=== PATIENT | female | born 1985 | race Two or more races ===

== ENCOUNTER 2019-09-27 13:29 | Emergency (ER) | payer SELFPAY ==
[2019-09-27 13:37] VITALS: BMI 25.4
--- NOTE | 2019-09-27 14:52 | PDOC ---
History of Present Illness - General Chief Complaint: Pain Stated Complaint: LOWER ABD PAIN Time Seen by Provider: 09/27/19 14:11 History Source: Patient Exam Limitations: No Limitations - History of Present Illness Initial Comments: 09/27/19 16:15 34 yo F w/ no known PMHx comes in c/o sudden onset of pelvic/perineal pain since yesterday which radiates to the rectum. Last BM today, no h/o constipation. (+)lower suprapubic/pelvic pain, no other complaints today, no fever/chills, no NVD, no vaginal discharge, no urinary symptoms (+)sexually active, does not use protection at all times, no h/o STDs. LMP September 04. Pt says that she gets similar pain when she is ovulating but it has never been this bad. She cannot even sit because of the pain Past History - Past Medical History Allergies/Adverse Reactions: Allergies Allergy/AdvReac Type Severity Reaction Status Date / Time No Known Allergies Allergy Verified 09/27/19 13:37 Home Medications: Ambulatory Orders NK [No Known Home Medication] 09/27/19 COPD: No - Psycho Social/Smoking Cessation Hx Smoking Status: Yes Smoking History: Current every day smoker Have you smoked in the past 12 months: Yes Number of Cigarettes Smoked Daily: 1 Information on smoking cessation initiated: No Hx Alcohol Use: No Drug/Substance Use Hx: No Review of Systems - Review of Systems Able to Perform ROS?: Yes Constitutional: No: Chills, Fever, Malaise, Night Sweats HEENTM: No: Eye Pain, Recent change in vision, Throat Pain Respiratory: No: Cough, Shortness of Breath Cardiac (ROS): No: Chest Pain, Palpitations, Chest Tightness ABD/GI: Yes: Abdominal cramping. No: Diarrhea, Nausea, Vomiting : No: Dysuria, Hematuria Musculoskeletal: No: Back Pain Integumentary: No: Rash Neurological: No: Headache, Numbness, Dizziness Psychiatric: No: Change in Appetite Endocrine: No: Unexplained Weight Loss *Physical Exam - Vital Signs Last Vital Signs Temp Pulse Resp BP Pulse Ox 98.0 F 60 18 111/70 100 09/27/19 13:35 09/27/19 13:35 09/27/19 13:35 09/27/19 13:35 09/27/19 13:35 - Physical Exam General Appearance: Yes: Nourished. No: Apparent Distress HEENT: positive: ALVIN, Normal ENT Inspection, Normal Voice. negative: Pale Conjunctivae, Scleral Icterus (R), Scleral Icterus (L) Neck: positive: Supple. negative: Decreased range of motion, Tender midline Respiratory/Chest: positive: Lungs Clear, Normal Breath Sounds. negative: Respiratory Distress, Accessory Muscle Use Cardiovascular: positive: Regular Rhythm, Regular Rate Female Pelvic Exam: positive: cervical os closed, CMT, discharge (scant whitish- grayish vaginal discharge), uterus ((+)uterine tenderness). negative: adnexal tenderness Gastrointestinal/Abdominal: positive: Normal Bowel Sounds, Tender (suprapubic tenderness, no RLQ/RUQ tenderness, (-)cardozo's sign, no tenderness at McBurney' s point.), Soft Rectal Exam: positive: other ((+)tenderness to fingertip exam on digital rectal exam). negative: hemorrhoids Musculoskeletal: positive: Normal Inspection. negative: CVA Tenderness, Decreased Range of Motion Extremity: positive: Normal Capillary Refill, Normal Inspection, Normal Range of Motion. negative: Tender, Pedal Edema Integumentary: positive: Normal Color, Dry. negative: Jaundice, Rash Neurologic: positive: Fully Oriented, Alert, Normal Mood/Affect ED Treatment Course - LABORATORY CBC & Chemistry Diagram: 09/27/19 15:00 09/27/19 15:00 Medical Decision Making - Medical Decision Making 09/27/19 16:39 34 yo F w/ perineal/pelvic/rectal pain, no vaginal discharge. WIll do a TVS R/O ruptured cyst. If sono negative, will do a CT R/O abscess and if all negative, will treat empiricaly for STDs. Change of shift, care of patient signed over to CHA García who will continue care and decide on dispo plan. Discharge - Discharge Information Problems reviewed: Yes Clinical Impression/Diagnosis: Pelvic pain Condition: Stable - Follow up/Referral Referrals: Chio Moreno DO [Primary Care Provider] - - Patient Discharge Instructions - Post Discharge Activity
[2019-09-27 15:33] LABS: BASO % 0.2 % (0-2.0); EOS % 3.6 % (0-4.5); HEMATOCRIT 43.1 % (32.4-45.2); HEMOGLOBIN 14.3 GM/dL (10.7-15.3); LYMPH % 34.6 % (8-40); MCH 30.8 pg (25.7-33.7); MCHC 33.1 g/dl (32.0-36.0); MEAN CELL VOLUME 93.1 fl (80-96); MEAN PLT VOLUME 8.8 fl (7.5-11.1); MONO % 8.1 % (3.8-10.2); NEUT % 53.5 % (42.8-82.8); PLATELET COUNT 250 K/MM3 (134-434); RBC 4.63 M/mm3 (3.60-5.2); RDW 12.5 % (11.6-15.6); WHITE BLOOD COUNT 6.9 K/mm3 (4.0-10.0)
[2019-09-27 15:47] LABS: URINE APPEARANCE CLEAR; URINE BILIRUBIN NEGATIVE (NEGATIVE); URINE COLOR YELLOW; URINE GLUCOSE (UA) NEGATIVE (NEGATIVE); URINE KETONE NEGATIVE (NEGATIVE); URINE LEUK ESTERASE NEGATIVE (NEGATIVE); URINE NITRITE NEGATIVE (NEGATIVE); URINE PROTEIN NEGATIVE (NEGATIVE); URINE UROBILINOGEN 0.2 mg/dL (0.2-1.0)
[2019-09-27 16:00] LABS: ALBUMIN 4.1 g/dl (3.4-5.0); BILIRUBIN,TOTAL 0.2 mg/dL (0.2-1); BLOOD UREA NITROGEN 12.6 mg/dL (7-18); CALCIUM 8.7 mg/dL (8.5-10.1); CREATININE 0.7 mg/dL (0.55-1.3); POTASSIUM 3.6 mmol/L (3.5-5.1); TOT PROT 7.4 g/dl (6.4-8.2)
--- NOTE | 2019-09-27 17:24 | PDOC ---
*Physical Exam - Vital Signs Last Vital Signs Temp Pulse Resp BP Pulse Ox 98.0 F 60 18 111/70 100 09/27/19 13:35 09/27/19 13:35 09/27/19 13:35 09/27/19 13:35 09/27/19 13:35 - Physical Exam General Appearance: Yes: Appropriately Dressed. No: Apparent Distress HEENT: positive: Normal ENT Inspection Respiratory/Chest: positive: Lungs Clear, Normal Breath Sounds. negative: Respiratory Distress, Accessory Muscle Use Cardiovascular: positive: Regular Rhythm, Regular Rate, S1, S2. negative: Edema , Murmur Gastrointestinal/Abdominal: positive: Normal Bowel Sounds, Soft. negative: Tender ED Treatment Course - LABORATORY CBC & Chemistry Diagram: 09/27/19 15:00 09/27/19 15:00 - ADDITIONAL ORDERS Additional order review: Laboratory Results 09/27/19 09/27/19 09/27/19 15:16 15:16 15:00 Sodium 139 Potassium 3.6 Chloride 104 Carbon Dioxide 27 Anion Gap 8 BUN 12.6 Creatinine 0.7 Est GFR (CKD-EPI)AfAm 132.87 Est GFR (CKD-EPI)NonAf 114.64 Random Glucose 88 Calcium 8.7 Total Bilirubin 0.2 AST 18 ALT 28 Alkaline Phosphatase 73 Total Protein 7.4 Albumin 4.1 Beta HCG, Quant Urine Color Yellow Urine Appearance Clear Urine pH 5.0 Ur Specific Bledsoe 1.011 Urine Protein Negative Urine Glucose (UA) Negative Urine Ketones Negative Urine Blood Negative Urine Nitrite Negative Urine Bilirubin Negative Urine Urobilinogen 0.2 Ur Leukocyte Esterase Negative Urine HCG, Qual Negative 09/27/19 15:00 Sodium Potassium Chloride Carbon Dioxide Anion Gap BUN Creatinine Est GFR (CKD-EPI)AfAm Est GFR (CKD-EPI)NonAf Random Glucose Calcium Total Bilirubin AST ALT Alkaline Phosphatase Total Protein Albumin Beta HCG, Quant < 1.0 Urine Color Urine Appearance Urine pH Ur Specific Bledsoe Urine Protein Urine Glucose (UA) Urine Ketones Urine Blood Urine Nitrite Urine Bilirubin Urine Urobilinogen Ur Leukocyte Esterase Urine HCG, Qual 09/27/19 15:00 RBC 4.63 MCV 93.1 MCHC 33.1 RDW 12.5 MPV 8.8 Neutrophils % 53.5 D Lymphocytes % 34.6 D Monocytes % 8.1 Eosinophils % 3.6 Basophils % 0.2 ED Progress Note - Progress Note Progress Note: 09/27/19 17:21 Received signout from CHAVA Garcia. Briefly this a 34-year-old woman Without significant history was presenting to the emergency department with perineal pain. Patient denies any urinary, vaginal or GI symptoms other than pain. Laboratory testing is unremarkable GC and Trichomonas testing is pending Ultrasound read pending. Plan is to CAT scan if ultrasound is negative. If there are findings on ultrasound treat those. 09/28/19 20:32 Medical Decision Making - Medical Decision Making 09/27/19 17:22 A/P: 34-year-old woman with perineal pain Transvaginal ultrasound as read by Dr. Cosme: Left hemorrhagic cyst Discharge patient home to follow-up with [employer] I discussed the physical exam findings, ancillary test results and final diagnoses with the patient. I answered all of the patient's questions. The patient was satisfied with the care received and felt comfortable with the discharge plan and treatment plan. The patient will call their primary care physician within 24 hours to arrange follow-up and will return to the Emergency Department with any new, persistent or worsening symptoms. Discharge - Discharge Information Problems reviewed: Yes Clinical Impression/Diagnosis: Left ovarian cyst Condition: Stable Disposition: HOME - Admission No - Follow up/Referral Referrals: Chio Moreno DO [Primary Care Provider] - - Patient Discharge Instructions Additional Instructions: Your ultrasound today showed a hemorrhagic cyst in your left ovary. 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 Take Tylenol or Motrin as needed for pain. Follow supervisor [employer]'s instructions for appropriate dosage. Return to emergency department for any new or worsening symptoms. Thank you very much for choosing us to provide your emergent health care needs. - Post Discharge Activity
[2019-09-27 17:37] VITALS: BP 105/62; PULSE 65; TEMP 98.9
== END 2019-09-27 18:10 | disposition home or self-care (01) ==
LOC: JER 13:29
DX: R10.2 Pelvic and perineal pain (principal); F17.210 Nicotine dependence, cigarettes, uncomplicated
CPT/HCPCS: 36415; 76830-TC; 80053; 81003; 84702; 84703; 85025; 87086; 87491; 87591; 87661; 99283-25

== ENCOUNTER 2022-01-12 09:54 | Emergency (ER) | payer OTHER ==
[2022-01-12 10:00] VITALS: BP 118/68; PULSE 67; TEMP 97.8; BMI 26.5
[2022-01-12 12:25] LABS: BASO % 0.3 % (0-2.0); EOS % 4.1 % (0-4.5); HEMATOCRIT 42.6 % (32.4-45.2); HEMOGLOBIN 14.6 GM/dL (10.7-15.3); LYMPH % 35.9 % (8-40); MCH 31.1 pg (25.7-33.7); MCHC 34.2 g/dl (32.0-36.0); MEAN PLT VOLUME 8.1 fl (7.5-11.1); MONO % 7.8 % (3.8-10.2); NEUT % 51.9 % (42.8-82.8); PLATELET COUNT 225 10^3/uL (134-434); RBC 4.68 M/mm3 (3.60-5.2); RDW 12.8 % (11.6-15.6); WHITE BLOOD COUNT 5.7 K/mm3 (4.0-10.0)
[2022-01-12] MEDS ORDERED: MECLIZINE HCL 25 MG TABLET (FP) PO ONE (12:48)
[2022-01-12 12:49] LABS: CALCIUM 9.3 mg/dL (8.5-10.1)
[2022-01-12 12:50] LABS: ALBUMIN 3.9 g/dl (3.4-5.0); BLOOD UREA NITROGEN 10.9 mg/dL (7-18)
[2022-01-12] MEDS ORDERED: MECLIZINE HCL 25 MG TABLET (FP) ONE (12:50)
[2022-01-12 12:53] LABS: CREATININE 0.6 mg/dL (0.55-1.3)
[2022-01-12 12:55] LABS: BILIRUBIN,TOTAL 0.3 mg/dL (0.2-1); TOT PROT 7.4 g/dl (6.4-8.2)
== END 2022-01-12 13:22 | disposition home or self-care (01) ==
LOC: JER 09:54
DX: R42 Dizziness and giddiness (principal); K08.89 Other specified disorders of teeth and supporting structures
CPT/HCPCS: 36415; 80053; 84703; 85025; 99283-25

== ENCOUNTER 2022-06-02 21:35 | Emergency (ER) | payer OTHER ==
[2022-06-02 22:18] VITALS: BP 124/77; PULSE 71; TEMP 97.9; BMI 26.4
[2022-06-03 01:11] LABS: BASO % 0.3 % (0-2.0); EOS % 2.8 % (0-4.5); HEMATOCRIT 41.5 % (32.4-45.2); HEMOGLOBIN 13.9 GM/dL (10.7-15.3); LYMPH % 26.2 % (8-40); MCH 30.6 pg (25.7-33.7); MCHC 33.4 g/dl (32.0-36.0); MEAN CELL VOLUME 91.6 fl (80-96); MEAN PLT VOLUME 8.3 fl (7.5-11.1); MONO % 6.4 % (3.8-10.2); NEUT % 64.3 % (42.8-82.8); PLATELET COUNT 256 10^3/uL (134-434); RBC 4.53 M/mm3 (3.60-5.2); RDW 12.8 % (11.6-15.6); WHITE BLOOD COUNT 8.6 K/mm3 (4.0-10.0)
[2022-06-03 01:12] LABS: EPI CELLS 4 /uL (0-25.1); HYALINE CASTS 0 /uL (0-3.1); PH,URINE 6.5 (5.0-8.0); URINE APPEARANCE CLEAR; URINE BACTERIA 105 /uL (0-1359); URINE BILIRUBIN NEGATIVE (NEGATIVE); URINE COLOR YELLOW; URINE GLUCOSE (UA) NEGATIVE (NEGATIVE); URINE KETONE NEGATIVE (NEGATIVE); URINE LEUK ESTERASE NEGATIVE (NEGATIVE); URINE NITRITE NEGATIVE (NEGATIVE); URINE PROTEIN NEGATIVE (NEGATIVE); URINE RBC 1 /uL (0-23.9); URINE UROBILINOGEN 0.2 mg/dL (0.2-1.0); URINE WBC 7 /uL (0-25.8)
[2022-06-03 01:31] LABS: ALBUMIN 3.8 g/dl (3.4-5.0); BLOOD UREA NITROGEN 6.6 mg/dL (7-18); CALCIUM 8.9 mg/dL (8.5-10.1)
[2022-06-03 01:34] LABS: CREATININE 0.6 mg/dL (0.55-1.3)
[2022-06-03 01:36] LABS: BILIRUBIN,TOTAL 0.4 mg/dL (0.2-1); TOT PROT 7.5 g/dl (6.4-8.2)
[2022-06-03] MEDS ORDERED: CEPHALEXIN 250 MG/5 ML ORAL SUSPENSION PO ONE (02:19)
[2022-06-03] MEDS ORDERED: CEPHALEXIN MONOHYDRATE 500 MG CAPSULE (UD) ONE (02:37)
[2022-06-03] MEDS ORDERED: CEPHALEXIN MONOHYDRATE 500 MG CAPSULE (UD) PO ONE (02:37)
== END 2022-06-03 02:45 | disposition home or self-care (01) ==
LOC: JER 21:35
DX: O20.0 Threatened abortion (principal); N39.0 Urinary tract infection, site not specified
CPT/HCPCS: 36415; 76817-TC; 80053; 81003; 84702; 85025; 86850; 86900; 86901; 87086; 99284-25

== ENCOUNTER 2022-11-29 03:32 | Emergency (ER) | payer OTHER ==
[2022-11-29 03:58] VITALS: BP 122/80; PULSE 90; RESP 20; TEMP 98.3; BMI 14.4
[2022-11-29 05:27] LABS: EPI CELLS 19 /uL (0-25.1); HYALINE CASTS 202 /uL (0-3.1); URINE APPEARANCE TURBID; URINE BILIRUBIN 2+ (NEGATIVE); URINE COLOR RED; URINE GLUCOSE (UA) NEGATIVE (NEGATIVE); URINE KETONE NEGATIVE (NEGATIVE); URINE LEUK ESTERASE 3+ (NEGATIVE); URINE NITRITE POSITIVE (NEGATIVE); URINE PROTEIN 3+ (NEGATIVE); URINE RBC 11581 /uL (0-23.9); URINE UROBILINOGEN 0.2 mg/dL (0.2-1.0); URINE WBC 92 /uL (0-25.8)
[2022-11-29] MEDS ORDERED: SULFAMETHOXAZOLE/TRIMETHOPRIM 800MG/160MG D.S. TABLET PO ONE (06:05)
[2022-11-29] MEDS ORDERED: SULFAMETHOXAZOLE/TRIMETHOPRIM 800MG/160MG D.S. TABLET ONE (06:27)
[2022-11-29 09:08] LABS: URINE BACTERIA OCCASIONAL /uL (0-1359)
== END 2022-11-29 06:35 | disposition home or self-care (01) ==
LOC: JER 03:32
DX: N39.0 Urinary tract infection, site not specified (principal); R31.9 Hematuria, unspecified
CPT/HCPCS: 81003; 84703; 87086; 99283-25

== ENCOUNTER 2023-10-06 00:11 | Emergency (ER) | payer OTHER ==
[2023-10-06 00:19] VITALS: BP 108/68; PULSE 85; RESP 20; TEMP 98.5; BMI 32.0
[2023-10-06] MEDS ORDERED: SODIUM CHLORIDE 0.9% 1000 ML INFUS.BAG IV ONE (00:39)
[2023-10-06] MEDS ORDERED: KETOROLAC TROMETHAMINE 30 MG/1 ML VIAL IVPUSH ONE (00:39)
[2023-10-06] MEDS ORDERED: KETOROLAC TROMETHAMINE 30 MG/1 ML VIAL ONE (00:56)
[2023-10-06 01:07] LABS: BASO % 0.2 % (0-2.0); HEMATOCRIT 40.7 % (32.4-45.2); HEMOGLOBIN 13.8 GM/dL (10.7-15.3); LYMPH % 13.6 % (8-40); MEAN CELL VOLUME 91.2 fl (80-96); MEAN PLT VOLUME 8.6 fl (7.5-11.1); MONO % 4.8 % (3.8-10.2); NEUT % 79.4 % (42.8-82.8); PLATELET COUNT 227 10^3/uL (134-434); RBC 4.47 M/mm3 (3.60-5.2); RDW 13.4 % (11.6-15.6); WHITE BLOOD COUNT 6.9 K/mm3 (4.0-10.0)
[2023-10-06 01:26] LABS: POTASSIUM 3.4 mmol/L (3.5-5.1)
[2023-10-06 01:28] LABS: CALCIUM 8.5 mg/dL (8.5-10.1)
[2023-10-06 01:29] LABS: ALBUMIN 3.6 g/dl (3.4-5.0); BLOOD UREA NITROGEN 9.7 mg/dL (7-18)
[2023-10-06 01:32] LABS: CREATININE 0.7 mg/dL (0.55-1.3)
[2023-10-06 01:33] LABS: BILIRUBIN,TOTAL 0.4 mg/dL (0.2-1); TOT PROT 6.8 g/dl (6.4-8.2)
[2023-10-06 01:39] LABS: PH,URINE 6.5 (5.0-8.0); URINE APPEARANCE CLEAR; URINE BILIRUBIN NEGATIVE (NEGATIVE); URINE COLOR YELLOW; URINE GLUCOSE (UA) NEGATIVE (NEGATIVE); URINE KETONE TRACE (NEGATIVE); URINE LEUK ESTERASE NEGATIVE (NEGATIVE); URINE NITRITE NEGATIVE (NEGATIVE); URINE PROTEIN NEGATIVE (NEGATIVE); URINE UROBILINOGEN 0.2 mg/dL (0.2-1.0)
== END 2023-10-06 03:17 | disposition home or self-care (01) ==
LOC: JER 00:11
PROC: 3E0333Z Introduction of Anti-inflammatory into Peripheral Vein, Percutaneous Approach (ICD-10-PCS; principal; 2023-10-06)
DX: M79.609 Pain in unspecified limb (principal); R11.10 Vomiting, unspecified; R50.9 Fever, unspecified; R51.9 Headache, unspecified; R53.83 Other fatigue; R00.0 Tachycardia, unspecified; R10.13 Epigastric pain; K29.00 Acute gastritis without bleeding
CPT/HCPCS: 36415; 76705-TC; 80053; 81003; 82150; 83605; 83690; 85025; 99284-25

== ENCOUNTER 2023-12-19 21:02 | Emergency (ER) | payer OTHER ==
[2023-12-19 21:07] VITALS: BP 143/68; PULSE 90; RESP 20; TEMP 97.9; BMI 28.7
[2023-12-19] MEDS ORDERED: ACETAMINOPHEN 500 MG TABLET (FP) PO ONE (21:44)
[2023-12-19] MEDS ORDERED: ACETAMINOPHEN 500 MG TABLET (FP) ONE (21:45)
[2023-12-19 22:21] LABS: EPI CELLS 30 /uL (0-25.1); HYALINE CASTS 81 /uL (0-3.1); URINE APPEARANCE CLOUDY; URINE BILIRUBIN 1+ (NEGATIVE); URINE COLOR RED; URINE GLUCOSE (UA) NEGATIVE (NEGATIVE); URINE KETONE NEGATIVE (NEGATIVE); URINE LEUK ESTERASE 3+ (NEGATIVE); URINE NITRITE POSITIVE (NEGATIVE); URINE PROTEIN 3+ (NEGATIVE); URINE RBC 3516 /uL (0-23.9); URINE UROBILINOGEN 0.2 mg/dL (0.2-1.0); URINE WBC 36 /uL (0-25.8)
[2023-12-19] MEDS ORDERED: SODIUM CHLORIDE 0.9% 500 ML INFUS.BAG IV ONE (22:25)
[2023-12-19 22:38] LABS: BASO % 0.6 % (0-2.0); EOS % 2.9 % (0-4.5); HEMATOCRIT 40.6 % (32.4-45.2); HEMOGLOBIN 13.5 GM/dL (10.7-15.3); LYMPH % 13.3 % (8-40); MCH 30.6 pg (25.7-33.7); MCHC 33.4 g/dl (32.0-36.0); MEAN CELL VOLUME 91.7 fl (80-96); MEAN PLT VOLUME 8.1 fl (7.5-11.1); MONO % 7.3 % (3.8-10.2); NEUT % 75.9 % (42.8-82.8); PLATELET COUNT 262 10^3/uL (134-434); RBC 4.42 M/mm3 (3.60-5.2); RDW 13.1 % (11.6-15.6); WHITE BLOOD COUNT 14.3 K/mm3 (4.0-10.0)
[2023-12-19 23:03] LABS: BLOOD UREA NITROGEN 9.1 mg/dL (7-18); CALCIUM 9.4 mg/dL (8.5-10.1); POTASSIUM 4.1 mmol/L (3.5-5.1)
[2023-12-19 23:06] LABS: CREATININE 0.6 mg/dL (0.55-1.3)
[2023-12-19] MEDS ORDERED: KETOROLAC TROMETHAMINE 30 MG/1 ML VIAL IVPUSH ONE (23:58)
[2023-12-19] MEDS ORDERED: CEFTRIAXONE 1 GM in DEXTROSE 5%-WATER - 100 ML IVPB ONE (23:58)
[2023-12-20] MEDS ORDERED: KETOROLAC TROMETHAMINE 30 MG/1 ML VIAL ONE (00:01)
[2023-12-20] MEDS ORDERED: CEFTRIAXONE 1 GM/50 ML BAG ONE (00:09)
[2023-12-20 10:50] LABS: URINE BACTERIA 1.8 /uL (0-1359)
== END 2023-12-20 00:23 | disposition home or self-care (01) ==
LOC: JER 21:02 → JERFT 21:02 → JER 12-20 00:23
PROC: 3E03329 Introduction of Other Anti-infective into Peripheral Vein, Percutaneous Approach (ICD-10-PCS; principal; 2023-12-19)
PROC: 3E0333Z Introduction of Anti-inflammatory into Peripheral Vein, Percutaneous Approach (ICD-10-PCS; 2023-12-19)
DX: R10.30 Lower abdominal pain, unspecified (principal); M54.9 Dorsalgia, unspecified; N30.01 Acute cystitis with hematuria; R30.0 Dysuria
CPT/HCPCS: 36415; 74176-TC; 80048; 81003; 84703; 85025; 87086; 99284-25